=== PATIENT | female | born 1945 | race Caucasian/White ===

== ENCOUNTER 2018-08-26 14:36 | Inpatient (IN) | payer OTHER ==
[~2018-08-26] VITALS: Ht 160 cm; Wt 73.6 kg
[2018-08-26 14:40] VITALS: Ht 160 cm; Wt 73.6 kg
[2018-08-26 16:06] LABS: BASOPHIL % 0.6 % (0-2); PLATELET COUNT 265 x10^3mcL (130-400); RED CELL DISTRIBUTION WIDTH 16.2 % (11.5-14.5)
[2018-08-26 16:15] LABS: CALCIUM 8.6 mg/dL (8.5-10.1); CARBON DIOXIDE 27.6 mmol/L (21-32); CHLORIDE SERUM 102 mmol/L (98-107); CREATININE SERUM 1.4 mg/dL (0.6-1.0); GLUCOSE SERUM 123 mg/dL (74-106); POTASSIUM SERUM 3.7 mmol/L (3.5-5.1); SODIUM SERUM 138 mmol/L (136-145)
[2018-08-26 16:19] LABS: ALBUMIN 3.5 g/dL (3.4-5.0); ALKALINE PHOSPHATASE 61 U/L (46-116); ALT/SGPT 17 U/L (14-59); AST/SGOT 13 U/L (15-37); BILIRUBIN TOTAL 0.2 mg/dL (0.20-1.00); CHOLESTEROL 141 mg/dL (<200); HDL CHOLESTEROL 47 mg/dL (40-60); TOTAL PROTEIN, SERUM 7.1 g/dL (6.4-8.2)
[2018-08-26] MEDS ORDERED: LANSOPRAZOLE30 M2 PO (18:07)
[2018-08-26] MEDS ORDERED: METFORMIN HYDR500 M1 PO (18:08)
[2018-08-26] MEDS ORDERED: LASIX40 MG PO (18:08)
[2018-08-26] MEDS ORDERED: KLOR-CON M2020 MEQ PO (18:09)
[2018-08-26] MEDS ORDERED: LOVASTATIN20 MG PO (18:10)
[2018-08-26] MEDS ORDERED: [UNRECOGNIZED DRUG - MIXTURE] PO (18:11)
[2018-08-26] MEDS ORDERED: CALCIUM500 M1 PO (18:12)
[2018-08-26] MEDS ORDERED: HYDROCHLOROTHIA25 MG PO (18:12)
[2018-08-26] MEDS ORDERED: DUAVEE PO (18:12)
[2018-08-26] MEDS ORDERED: NATURAL ZINC50 MG PO (18:13)
[2018-08-26] MEDS ORDERED: ALPHA LIPOIC AC50 M1 PO (18:13)
[2018-08-26] MEDS ORDERED: NAMENDA10 M2 PO (18:14)
[2018-08-26] MEDS ORDERED: TRAMADOL HCL50 MG PO (18:14)
[2018-08-26] MEDS ORDERED: ARICEPT10 MG PO (18:14)
[2018-08-26 19:14] VITALS: BP 130/47
[2018-08-26 19:19] LABS: CHOLESTEROL/HDL RATIO 3.1; PHOSPHOROUS 3.2 mg/dL (2.5-4.9)
[2018-08-27 02:49] LABS: microscopic required? YES; urine erythrocyte TRACE (NEGATIVE)
[2018-08-27 05:41] VITALS: BP 121/51
[2018-08-27 07:26] LABS: BASOPHIL % 0.3 % (0-2); PLATELET COUNT 224 x10^3mcL (130-400)
[2018-08-27 07:27] LABS: RED CELL DISTRIBUTION WIDTH 15.4 % (11.5-14.5)
[2018-08-27 07:48] LABS: CALCIUM 8.2 mg/dL (8.5-10.1); CARBON DIOXIDE 25.3 mmol/L (21-32); CHLORIDE SERUM 105 mmol/L (98-107); CREATININE SERUM 1.2 mg/dL (0.6-1.0); GLUCOSE SERUM 113 mg/dL (74-106); POTASSIUM SERUM 3.6 mmol/L (3.5-5.1); SODIUM SERUM 138 mmol/L (136-145)
[2018-08-27 09:42] VITALS: BP 119/62
[2018-08-27 13:57] VITALS: BP 151/58
[2018-08-27 17:13] VITALS: BP 138/63
[2018-08-27 21:01] VITALS: BP 122/49
[2018-08-28 05:32] VITALS: BP 126/69
[2018-08-28 07:34] LABS: BASOPHIL % 0.7 % (0-2); PLATELET COUNT 245 x10^3mcL (130-400)
[2018-08-28 07:44] LABS: RED CELL DISTRIBUTION WIDTH 15.9 % (11.5-14.5)
[2018-08-28 07:54] LABS: CALCIUM 8.3 mg/dL (8.5-10.1); CARBON DIOXIDE 26.5 mmol/L (21-32); CHLORIDE SERUM 109 mmol/L (98-107); CREATININE SERUM 1.1 mg/dL (0.6-1.0); GLUCOSE SERUM 100 mg/dL (74-106); MAGNESIUM 2.1 mg/dL (1.8-2.4); PHOSPHOROUS 3.4 mg/dL (2.5-4.9); POTASSIUM SERUM 3.9 mmol/L (3.5-5.1); SODIUM SERUM 142 mmol/L (136-145)
[2018-08-28 08:30] VITALS: BP 103/51
[2018-08-28 12:39] VITALS: BP 103/51
[2018-08-28 13:20] VITALS: BP 121/50
== END 2018-08-28 16:01 | disposition home or self-care (01) | DRG 73 ==
LOC: ED 14:36 → DU 18:14
PROVIDERS: Emergency Medicine; Family Medicine; Internal Medicine
DX: G90.8 Other disorders of autonomic nervous system (principal); N17.0 Acute kidney failure with tubular necrosis; N39.0 Urinary tract infection, site not specified; R55 Syncope and collapse; I10 Essential (primary) hypertension; E11.9 Type 2 diabetes mellitus without complications; G30.9 Alzheimer's disease, unspecified; F02.80 Dementia in other diseases classified elsewhere, unspecified severity, without behavioral disturbance, psychotic disturbance, mood disturbance, and anxiety; Z68.27 Body mass index [BMI] 27.0-27.9, adult; Z91.048 Other nonmedicinal substance allergy status; Z88.7 Allergy status to serum and vaccine; Z79.84 Long term (current) use of oral hypoglycemic drugs; Z79.899 Other long term (current) drug therapy
CPT/HCPCS: 82962; 83880; 90658; 97110-GP; 97112-GP; J0696; Q0092